=== PATIENT | male | born 1960 | race Caucasian/White ===

== ENCOUNTER 2020-07-31 21:06 | Emergency (ER) | payer OTHER ==
[~2020-07-31] VITALS: Ht 170.2 cm; Wt 64.9 kg
[~2020-07-31 21:06] MED LIST: NORCO 7.5-3251 EACH PO; PHENYTOIN SODI100 MG PO; ZOLOFT50 MG PO
--- NOTE | 2020-07-31 22:51 | Diagnostic Imaging Report ---
X-ray left knee 3 views HISTORY: Pain. Trauma COMPARISON: None available. FINDINGS: Bones: No acute displaced fracture. Osseous alignment is within normal limits. Joints: The joint spaces are well-maintained. Small joint effusion. Soft tissues: Prepatellar and infrapatellar soft tissue swelling. IMPRESSION: Prepatellar and infrapatellar soft tissue swelling. Small joint effusion. No acute fracture or dislocation. Signed by: Ambrose Hua MD on 07/31/2020 10:48 PM
[2020-07-31 23:22] VITALS: BP 120/72
--- NOTE | 2020-07-31 23:34 | Emergency Department Note ---
History of Present Illnes History of Present Illness Chief Complaint: Extremity Trauma/Pain History of Present Illness This is a 39 year old male complains of left knee pain s/p landing from jump while playing basketball. heard "pop". No prior injury to left knee, but similar sx in past when tore opposite knee's ACL. Ambulatory with gait favoring LLE. Denies any other injuries. Did not hit head. No LOC. No numbness, weakness, or tingling of leg. Historian: Patient Arrival Mode: Car General Superintendent Required: No Onset (how long ago): day(s) (yesterday) Location: left knee Quality: dull Radiation: Reports non-radiation Severity: mild Onset quality: sudden Duration (how long): day(s) (yesterday) Progression: unchanged Chronicity: new Context: Reports trauma/injury; Denies recent illness Relieving factors: rest Exacerbating factors: movement Treatments prior to arrival: NSAID Past Medical/Family History Physician Review I have reviewed the patient's past medical and family history. Any updates have been documented here. Past Medical History Recent Fever: No Clinical Suspicion of Infectio: No New/Unexplained Change in Ment: No Past Medical History: None Other Surgery: ACL/Meniscus repair at R knee Back disc removal Social History Smoking Cessation: Never Smoker Alcohol Use: None Any Illegal Drug Use: Yes (Marijuana) Other Any Pre-Existing Lines (PICC,: No Review of Systems Review of Systems Constitutional: Denies chills, Denies fever EENTM: Denies nose congestion, Denies throat pain Cardiovascular: Denies chest pain Respiratory: Denies cough, Denies dyspnea Gastrointestinal: Denies diarrhea, Denies nausea, Denies vomiting Genitourinary: Denies hematuria Musculoskeletal: Reports as per HPI, Reports joint pain; Denies back pain Integumentary: Denies rash Neurological: Denies headache, Denies numbness Hematological/Lymphatic: Denies easy bleeding, Denies easy bruising Physical Exam Related Data Allergies: Coded Allergies: No Known Allergies (Unverified , 03/14/15) Triage Vital Signs Vital Signs Date Time Temp Pulse Resp B/P (MAP) Pulse Ox O2 Delivery O2 Flow Rate FiO2 07/31/20 22:01 99.3 55 16 127/81 100 07/31/20 22:14 Room Air Physical Exam CONSTITUTIONAL Constitutional: Present well-developed, Present well-nourished HENT HENT: Present normocephalic, Present atraumatic, Present oropharynx clear/moist, Present nose normal EYES Eyes: Reports PERRL, Reports conjunctivae normal NECK Neck: Present ROM normal PULMONARY Pulmonary: Present effort normal, Present breath sounds normal CARDIOVASCULAR Cardiovascular: Present regular rhythm, Present heart sounds normal, Present capillary refill normal, Present normal rate GASTROINTESTINAL Abdominal: Present soft, Present nontender, Present bowel sounds normal GENITOURINARY SKIN Skin: Present warm, Present dry MUSCULOSKELETAL Musculoskeletal: Present tenderness (left knee mild tenderness anterior knee medially to patella.), Present other (Stregth 5/5 and equal bilateral LE, negative ant/posterior drawer, no medial/lateral laxity. + mild left knee effusion. Knee swelling medial to patella.); Absent ROM normal (FROM, but pain worse with ROM.), Absent deformity NEUROLOGICAL Neurological: Present alert, Present oriented x 3, Present no gross motor or sensory deficits; Absent sensory deficit (sensation grossly intact left LE) PSYCHOLOGICAL Psychological: Present mood/affect normal, Present judgement normal Results Imaging Imaging Comments X-ray left knee 3 views HISTORY: Pain. Trauma COMPARISON: None available. FINDINGS: Bones: No acute displaced fracture. Osseous alignment is within normal limits. Joints: The joint spaces are well-maintained. Small joint effusion. Soft tissues: Prepatellar and infrapatellar soft tissue swelling. IMPRESSION: Prepatellar and infrapatellar soft tissue swelling. Small joint effusion. No acute fracture or dislocation. Signed by: Akhil Sanz MD on 07/31/2020 10:48 PM Dictated By: AKHIL SANZ MD 46 Transcribed By: RODO on 07/31/202247 Procedures Orthopedic Splinting/Casting Side: left Lower extremity injury locatio: knee Lower extremity immobilizer: knee immobilizer Additional comments Tolerated, no complications. Assessment & Plan Medical Decision Making MDM Differential dx includes, but not limited to: fracture, sprain, contusion, traumatic effusion, tendon rupture/tear, ligament tear, meniscus injury. Xray negative here: patient needs f/u with potential MRI. Assessment & Plan Final Impression: (1) Knee sprain Depart Disposition: HOME, SELF-CARE Last Vital Signs Date Time Temp Pulse Resp B/P (MAP) Pulse Ox O2 Delivery O2 Flow Rate FiO2 07/31/20 22:14 99.3 75 17 127/81 100 Room Air Home Meds Reported Medications Hydrocodone Bit/Acetaminophen (NORCO 7.5-325 TABLET) 1 Each Tablet, 1 EA PO Q4HR for PAIN, TAB 03/14/15 Sertraline Hcl (ZOLOFT) 50 Mg Tablet, 50 MG PO DAILY, #30 TAB 03/13/15 Phenytoin Sodium Extended (PHENYTOIN SODIUM EXTENDED) 100 Mg Capsule, 100 MG PO TID 03/13/15 ANIRUDH MENJIVAR MD Jul 31, 2020 23:28
== END 2020-07-31 23:22 | disposition home or self-care (01) ==
LOC: FSED 21:20
DX: S83.92XA Sprain of unspecified site of left knee, initial encounter (principal); Y93.67 Activity, basketball; Y92.310 Basketball court as the place of occurrence of the external cause
CPT/HCPCS: 99283